=== PATIENT | male | born 1950 | race Caucasian/White ===

== ENCOUNTER 2019-09-06 09:31 | Outpatient (CLI) | payer MEDICARE | END 2019-09-06 23:59 | disposition home or self-care (01) | LOC: RAD 09:31 | PROVIDERS: ATTEND Family Medicine | DX: R13.14 Dysphagia, pharyngoesophageal phase (principal) | CPT/HCPCS: 74230 ==

== ENCOUNTER → 2020-04-09 | Outpatient (CLI) | payer MEDICARE | END | disposition home or self-care (01) | LOC: STAR 08:48 | PROVIDERS: ATTEND Anesthesiology | DX: Z01.818 Encounter for other preprocedural examination (principal); Z01.812 Encounter for preprocedural laboratory examination; Z01.89 Encounter for other specified special examinations; R79.1 Abnormal coagulation profile | CPT/HCPCS: 93005 ==